=== PATIENT | female | born 1955 | race Caucasian/White ===

== ENCOUNTER 2020-10-17 11:29 | Emergency (ER) | payer MEDICARE | END 2020-10-17 12:16 | disposition left against medical advice (07) | LOC: ED 11:29 | DX: Z53.9 Procedure and treatment not carried out, unspecified reason (principal) | CPT/HCPCS: 36415; 80061; 83721; 99282 ==

== ENCOUNTER 2021-01-10 06:08 | Day surgery (SDC) | payer MEDICARE ==
[2021-01-10] MEDS ORDERED: Lactated Ringers 1,000 ML IV ONE ×2 (06:38→08:56)
[2021-01-10] MEDS ORDERED: Lactated Ringers 1,000 ML IV SCH (07:00)
[2021-01-10] MEDS ORDERED: Versed 2 MG/2 ML Injection ONE (07:57)
[2021-01-10] MEDS ORDERED: Xylocaine-Mpf 2% 5 Ml Vial ONE (07:57)
[2021-01-10] MEDS ORDERED: DIPRIVAN 200 MG/20 ML IV ONE ×2 (07:57→08:26)
[2021-01-10] MEDS ORDERED: BREVIBLOC 100 MG/10 ML IV ONE (08:48)
[2021-01-10] MEDS ORDERED: LOPRESSOR 5 MG/5 ML INJECTION IV ONE (09:12)
--- NOTE | 2021-01-10 09:35 | OP ---
SURGERY DATE/TIME: 01/10/2021 0805 PREOPERATIVE DIAGNOSES: 1) Abdominal pain. 2) Diarrhea. 3) Weight loss. POSTOPERATIVE DIAGNOSES: 1) Mild gastritis. 2) Normal colon. PROCEDURES: 1) EGD. 2) Colonoscopy. SURGEON: Favio Bruce M.D. ANESTHESIA: MAC by Etienne Loyd CRNA. ESTIMATED BLOOD LOSS: Minimal. SPECIMENS: There were two cold forceps biopsies taken from the gastric antrum for Helicobacter pylori testing and two cold forceps biopsies from the duodenum for celiac testing. DESCRIPTION OF PROCEDURE: After informed written consent was obtained, the patient was taken to the endoscopy suite. She was placed in the left lateral decubitus position and a bite block inserted. Anesthesia was titrated to desired level of consciousness and the endoscope was inserted in the posterior oropharynx. Under direct visualization the esophagus was easily traversed. The esophageal mucosa was within normal limits free of any lesions or defects. The gastroesophageal junction likewise appeared normal upon entering into the stomach. There was normal rugated gastric mucosa free of any lesions or defects. There were some gastritis changes in the antrum. The duodenum had a normal mucosal appearance. Two cold forceps biopsies were taken from the duodenum and sent for celiac testing. Two cold forceps biopsies were taken from the gastric antrum and sent for Helicobacter pylori testing and there was minimal blood loss. Upon withdrawal no other lesions were encountered. The scope was removed and the scopes were switched. Digital rectal exam showed normal sphincter tone and no internal lesions. The scope was inserted in the rectum and sequentially the entire colonic mucosa was traversed. The level of the cecum was reached and verified with direct visualization of the ileocecal valve. Upon withdrawal careful mucosal inspection revealed no gross abnormalities with no lesions or defects. No evidence of ulceration or inflammation. Prep was noted to be good. Prior to withdrawal retroflexion was performed and showed no internal lesions. The scope was removed and the patient was transferred to the recovery room in good condition.
[2021-01-10 09:38] VITALS: O2SAT 97
[2021-01-10 09:46] VITALS: BP 155/95; PULSE 58
== END 2021-01-10 09:57 | disposition home or self-care (01) ==
LOC: SDC 06:08
PROVIDERS: ATTEND Family Medicine
DX: K29.70 Gastritis, unspecified, without bleeding (principal); R19.7 Diarrhea, unspecified; R10.9 Unspecified abdominal pain; R63.4 Abnormal weight loss
CPT/HCPCS: 88305; J2250; J2704

== ENCOUNTER 2023-05-07 12:45 | Day surgery (SDC) | payer MEDICARE ==
[2023-05-07] MEDS ORDERED: Sodium Chloride 0.9(Preservative Free) 10 ML IJ ONE (12:46)
[2023-05-07] MEDS ORDERED: Decadron 4 MG INJ IV ONE (12:46)
[2023-05-07] MEDS ORDERED: Lactated Ringers 1,000 ML IV ONE (13:58)
[2023-05-07] MEDS ORDERED: DIPRIVAN 200 MG/20 ML IV ONE (14:29)
--- NOTE | 2023-05-07 15:08 | XRAY ---
Indication: Left L2-L4 transforaminal TATIANA. Intraoperative fluoroscopy provided for 26 seconds. 4 digital spot image submitted for interpretation demonstrates posterior needle tips projecting over the expected left L2 and L3 nerve roots. Small amount of contrast injected for needle tip placement. Correlate with intraoperative findings/report.
--- NOTE | 2023-05-07 15:19 | XRAY ---
26 seconds of fluoroscopy was used in surgery for a left L2-L4 transforaminal TATIANA.
== END 2023-05-07 14:49 | disposition home or self-care (01) ==
LOC: SDC-PAIN 12:45
PROVIDERS: ATTEND Psychiatry & Neurology Pain Medicine
DX: M54.16 Radiculopathy, lumbar region (principal)
CPT/HCPCS: 64483; 64484; 72100; 77003; J1100; J2704; Q9966